=== PATIENT | male | born 1955 | race Caucasian/White ===

== ENCOUNTER → 2023-09-25 07:36 | Outpatient (REF) | payer BC, SELFPAY ==
[2023-09-25 08:39] LABS: % Basophils 0.8 % (0-2); % Eosinophils 9.1 % (0-6); % Immature Granulocytes 0.2 % (0-0.5); % Lymphocytes 26.2 % (20.5-51.1); % Monocytes 10.1 % (1.7-9.3); % Neutrophils 53.6 % (42.2-75.2); Absolute Eosinophils 0.4 10^3/uL (0-0.7); Absolute Lymphocytes 1.2 10^3/uL (1.2-3.4); Absolute Monocytes 0.5 10^3/uL (0.1-0.6); Absolute Neutrophils 2.5 10^3/uL (1.4-6.5); Hematocrit 35.1 % (39.0-52.0); Mean Corp Hgb Conc. 34.2 g/dL (33.0-37.0); Mean Corpuscular Hgb 32.9 pg (27.0-31.0); Mean Corpuscular Volume 96.2 fL (80.0-94.0); Mean Platelet Volume 9.5 fL (7.4-10.4); Nucleated Red Blood Cells % 0 % (-); Platelet Count 218 10^3/uL (130-400); Red Blood Cell Count 3.65 10^6/uL (4.70-6.10); Red Cell Dist. Width 12.4 % (11.5-14.5); White Blood Cell Count 4.7 10^3/uL (4.8-10.8)
[2023-09-25 08:43] LABS: Urine Albumin Negative (Neg - Trace); Urine Bilirubin Negative (Negative); Urine Character Clear (Clear); Urine Color Yellow; Urine Glucose Negative (Negative); Urine Ketone Negative (Negative); Urine Leukocyte Negative (Negative); Urine Nitrite Negative (Negative); Urine Occult Blood Negative (Negative); Urine Urobilinogen Negative (Neg - 1+)
[2023-09-25 09:23] LABS: ALT (SGPT) 31 U/L (0-50); AST (SGOT) 32 U/L (17-59); Albumin 4.1 g/dl (3.5-5.0); Alkaline Phosphatase 59 U/L (38-126); Blood Urea Nitrogen 26 mg/dl (9-20); Calcium 9.6 mg/dl (8.4-10.2); Carbon Dioxide 31 mmol/L (22-30); Chloride 105 mmol/L (98-107); Glucose 117 mg/dl (70-99); HDL Cholesterol 53 mg/dl; LDL Cholesterol, Calculated 74 mg/dl; Potassium 4.3 mmol/L (3.5-5.1); Sodium 138 mmol/L (135-145); Total Bilirubin 0.6 mg/dl (0.2-1.3); Total Cholesterol 155 mg/dl (50-199); Total Protein 6.6 g/dl (6.3-8.2); Triglyceride 140 mg/dl (10-149); Very Low Density Lipoprotein 28 mg/dl (0-30); eGFR > 60.00
[2023-09-25 09:30] LABS: Glycohemoglobin (HgbA1c) 6.1 % (4.0-5.6)
[2023-09-25 09:51] LABS: PSA, Total - Screen 0.38 ng/ml (0.0-4.0); TSH 3.91 uIU/ml (0.47-4.68); TSH Reflex To Free T4 3.91 uIU/ml (0.47-4.68)
[2023-09-25 09:54] LABS: Ferritin 25.9 ng/ml (17.9-464.0)
[2023-09-25 10:11] LABS: Vitamin D, 25-OH*** 43.4 ng/mL (30-80)
[2023-09-25 10:26] LABS: Folate > 20.0 ng/ml (2.76-20); Vitamin B12 473 pg/ml (239-931)
[2023-09-25 10:40] LABS: Protein/creatinine Ratio 0.1; Urine Protein 9 mg/dl
[2023-09-25 10:43] LABS: Microalbumin, Random Urine 0.8 mg/dl (0.6-1.7); Microalbumin/creatinine Ratio 7.1 mg/g
[2023-09-26 08:42] LABS: Intact PTH 38.2 pg/ml (13.6-85.8)
== END ==
LOC: REG 07:36
PROVIDERS: ATTENDING PHYSICIAN Internal Medicine; FAMILY PHYSICIAN Internal Medicine Nephrology; REFERRING PHYSICIAN Internal Medicine Cardiovascular Disease
DX: Z00.00 Encounter for general adult medical examination without abnormal findings (principal); E11.65 Type 2 diabetes mellitus with hyperglycemia; E78.5 Hyperlipidemia, unspecified; I10 Essential (primary) hypertension; E87.6 Hypokalemia; E08.29 Diabetes mellitus due to underlying condition with other diabetic kidney complication; N20.0 Calculus of kidney; N25.89 Other disorders resulting from impaired renal tubular function; R82.992 Hyperoxaluria; E79.0 Hyperuricemia without signs of inflammatory arthritis and tophaceous disease; R82.993 Hyperuricosuria; Q23.1 Congenital insufficiency of aortic valve
CPT/HCPCS: 36415; 80053; 80061; 81003; 82043; 82306; 82570; 82607; 82728; 82746; 83036; 83970; 84156; 84443; 84550; 85025; G0103

== ENCOUNTER → 2023-10-02 06:43 | Outpatient (REF) | payer BC, SELFPAY ==
[2023-10-06 14:12] LABS: 24 Hour Urine Total Volume 2000 mL; CAHPO4, Urine Supersaturation 4.12; CAOX, Urine Supersaturation 2.66; Calcium, Urine 10.5 mg/dL; Calcium, Urine 24 Hour 210 mg/d (100-250); Chloride, Urine 76 mmol/L; Chloride, Urine 24 Hour 152 mmol/d (140-250); Citric Acid, Urine 294 mg/L; Citric Acid, Urine 24 Hour 588 mg/d (320-1240); Creatinine, Urine 24 Hour 1280 mg/d (800-2100); Creatinine, Urine per Volume 64 mg/dL; Magnesium, 24 Hour Urine 144 mg/d (12-199); Magnesium, Urine 7.2 mg/dL; Oxalate, Urine 11 mg/L; Oxalate, Urine 24 Hr 22 mg/d (16-49); Phosphorus, Urine 40 mg/dL; Phosphorus, Urine 24 Hour 800 mg/d (400-1300); Potassium, Urine 66 mmol/L; Potassium, Urine 24 Hour 132 mmol/d (25-125); Sodium, Urine 73 mmol/L; Sodium, Urine 24 Hour 146 mmol/d (51-286); Sulfate, Urine 12 mmol/L; Sulfate, Urine 24 Hour 24 mmol/d (6-30); Uric Acid Calculi -Supersat 0.02; Uric Acid, Urine 23.9 mg/dL; Uric Acid, Urine 24 Hour 478 mg/d (250-750); Urine Collection Length 24 hr; Urine Supersaturation Interp Abnormal; pH, Urine 7.34 (5.00-7.50)
== END ==
LOC: REG 06:43
PROVIDERS: ATTENDING PHYSICIAN Internal Medicine Nephrology; FAMILY PHYSICIAN Internal Medicine
DX: R82.992 Hyperoxaluria (principal); R82.993 Hyperuricosuria
CPT/HCPCS: 81050; 82340; 82436; 82507; 83735; 83945; 83986; 84105; 84133; 84300; 84392; 84560

== ENCOUNTER → 2024-01-04 14:32 | Outpatient (REF) | payer BC, SELFPAY ==
[2024-01-08 14:56] LABS: Lyme Antibody Screen, EIA Negative (Negative)
== END ==
LOC: REG 14:32
PROVIDERS: ATTENDING PHYSICIAN Internal Medicine
DX: T14.8XXA Other injury of unspecified body region, initial encounter (principal); W57.XXXA Bitten or stung by nonvenomous insect and other nonvenomous arthropods, initial encounter
CPT/HCPCS: 36415; 86618

== ENCOUNTER → 2024-07-31 07:02 | Outpatient (REF) | payer BC, SELFPAY ==
[2024-07-31 08:38] LABS: ALT (SGPT) 128 U/L (0-50); AST (SGOT) 101 U/L (17-59); Albumin 4.9 g/dl (3.5-5.0); Alkaline Phosphatase 68 U/L (38-126); Blood Urea Nitrogen 39 mg/dl (9-20); Calcium 10.2 mg/dl (8.4-10.2); Carbon Dioxide 29 mmol/L (22-30); Chloride 98 mmol/L (98-107); Glucose 130 mg/dl (70-99); HDL Cholesterol 42 mg/dl; LDL Cholesterol, Calculated 81 mg/dl; Potassium 4.4 mmol/L (3.5-5.1); Sodium 139 mmol/L (135-145); Total Bilirubin 0.7 mg/dl (0.2-1.3); Total Cholesterol 154 mg/dl (50-199); Total Protein 7.5 g/dl (6.3-8.2); Triglyceride 155 mg/dl (10-149); Very Low Density Lipoprotein 31 mg/dl (0-30); eGFR > 60.00
[2024-07-31 09:13] LABS: % Basophils 0.4 % (0-2); % Eosinophils 1.6 % (0-6); % Immature Granulocytes 0.6 % (0-0.5); % Lymphocytes 20.8 % (20.5-51.1); % Monocytes 9.3 % (1.7-9.3); % Neutrophils 67.3 % (42.2-75.2); Absolute Eosinophils 0.1 10^3/uL (0-0.7); Absolute Lymphocytes 1.5 10^3/uL (1.2-3.4); Absolute Monocytes 0.7 10^3/uL (0.1-0.6); Absolute Neutrophils 4.7 10^3/uL (1.4-6.5); Hematocrit 39.3 % (39.0-52.0); Hemoglobin 13.7 g/dL (13.0-18.0); Mean Corp Hgb Conc. 34.9 g/dL (33.0-37.0); Mean Corpuscular Hgb 32.2 pg (27.0-31.0); Mean Corpuscular Volume 92.3 fL (80.0-94.0); Mean Platelet Volume 9.5 fL (7.4-10.4); Nucleated Red Blood Cells % 0 % (-); Platelet Count 260 10^3/uL (130-400); Red Blood Cell Count 4.26 10^6/uL (4.70-6.10); Red Cell Dist. Width 11.9 % (11.5-14.5)
[2024-07-31 09:25] LABS: Urine Albumin 1+ (Neg - Trace); Urine Bilirubin Negative (Negative); Urine Character Slightly Cloudy (Clear); Urine Color Yellow; Urine Glucose Negative (Negative); Urine Ketone Negative (Negative); Urine Leukocyte Negative (Negative); Urine Nitrite Negative (Negative); Urine Occult Blood Negative (Negative); Urine Urobilinogen Negative (Neg - 1+)
[2024-07-31 09:52] LABS: Urine Mucus Many
[2024-07-31 09:55] LABS: Urine Amorphous Seen
[2024-07-31 09:59] LABS: Urine Bacteria Few (Negative); Urine Red Blood Cell 0-2 /HPF (0-2)
[2024-07-31 10:26] LABS: Vitamin D, 25-OH*** 49.9 ng/mL (30-80)
[2024-07-31 10:36] LABS: Glycohemoglobin (HgbA1c) 6.1 % (4.0-5.6)
[2024-07-31 10:39] LABS: TSH Reflex To Free T4 3.96 uIU/ml (0.47-4.68)
[2024-08-01 19:30] LABS: Hepatitis C Antibody Negative (Negative)
== END ==
LOC: REG 07:02
PROVIDERS: ATTENDING PHYSICIAN Internal Medicine Cardiovascular Disease; FAMILY PHYSICIAN Internal Medicine
DX: E78.5 Hyperlipidemia, unspecified (principal); I10 Essential (primary) hypertension; E11.65 Type 2 diabetes mellitus with hyperglycemia; E78.00 Pure hypercholesterolemia, unspecified; E87.6 Hypokalemia; Z11.59 Encounter for screening for other viral diseases
CPT/HCPCS: 36415; 80053; 80061; 81003; 81015; 82306; 83036; 84443; 85025; 86803

== ENCOUNTER → 2024-09-07 08:07 | Outpatient (REF) | payer BC, SELFPAY ==
[2024-09-07 09:12] LABS: Urine Albumin Negative (Neg - Trace); Urine Bilirubin Negative (Negative); Urine Character Clear (Clear); Urine Color Yellow; Urine Glucose Negative (Negative); Urine Ketone Negative (Negative); Urine Leukocyte Negative (Negative); Urine Nitrite Negative (Negative); Urine Occult Blood Negative (Negative); Urine Urobilinogen Negative (Neg - 1+)
[2024-09-07 09:24] LABS: % Basophils 0.7 % (0-2); % Eosinophils 3.5 % (0-6); % Immature Granulocytes 0.4 % (0-0.5); % Lymphocytes 25.1 % (20.5-51.1); % Monocytes 10.3 % (1.7-9.3); Absolute Eosinophils 0.2 10^3/uL (0-0.7); Absolute Lymphocytes 1.4 10^3/uL (1.2-3.4); Absolute Monocytes 0.6 10^3/uL (0.1-0.6); Absolute Neutrophils 3.3 10^3/uL (1.4-6.5); Hematocrit 38.2 % (39.0-52.0); Mean Corpuscular Hgb 31.9 pg (27.0-31.0); Mean Corpuscular Volume 93.9 fL (80.0-94.0); Mean Platelet Volume 9.4 fL (7.4-10.4); Nucleated Red Blood Cells % 0 % (-); Platelet Count 226 10^3/uL (130-400); Red Blood Cell Count 4.07 10^6/uL (4.70-6.10); Red Cell Dist. Width 11.9 % (11.5-14.5); White Blood Cell Count 5.5 10^3/uL (4.8-10.8)
[2024-09-07 09:36] LABS: ALT (SGPT) 49 U/L (0-50); AST (SGOT) 36 U/L (17-59); Albumin 4.4 g/dl (3.5-5.0); Alkaline Phosphatase 77 U/L (38-126); Blood Urea Nitrogen 21 mg/dl (9-20); Carbon Dioxide 29 mmol/L (22-30); Chloride 104 mmol/L (98-107); Glucose 112 mg/dl (70-99); HDL Cholesterol 49 mg/dl; LDL Cholesterol, Calculated 83 mg/dl; Sodium 142 mmol/L (135-145); Total Bilirubin 0.7 mg/dl (0.2-1.3); Total Cholesterol 158 mg/dl (50-199); Total Protein 7.1 g/dl (6.3-8.2); Triglyceride 133 mg/dl (10-149); Very Low Density Lipoprotein 26 mg/dl (0-30); eGFR > 60.00
[2024-09-07 09:54] LABS: Vitamin D, 25-OH*** 47.2 ng/mL (30-80)
[2024-09-07 10:08] LABS: PSA, Total - Screen 0.38 ng/ml (0.0-4.0); TSH Reflex To Free T4 3.39 uIU/ml (0.47-4.68)
[2024-09-07 11:06] LABS: Microalbumin, Random Urine <0.6 mg/dl (0.6-1.7)
[2024-09-07 11:40] LABS: Glycohemoglobin (HgbA1c) 5.9 % (4.0-5.6)
== END ==
LOC: REG 08:07
PROVIDERS: ATTENDING PHYSICIAN Internal Medicine; REFERRING PHYSICIAN Internal Medicine Cardiovascular Disease
DX: I10 Essential (primary) hypertension (principal); E11.65 Type 2 diabetes mellitus with hyperglycemia; E78.5 Hyperlipidemia, unspecified; Z80.42 Family history of malignant neoplasm of prostate; E87.6 Hypokalemia; E55.9 Vitamin D deficiency, unspecified; Z12.5 Encounter for screening for malignant neoplasm of prostate
CPT/HCPCS: 36415; 80053; 80061; 81003; 82043; 82306; 82570; 83036; 84443; 85025; G0103

== ENCOUNTER → 2024-10-31 14:56 | Outpatient (REF) | payer BC, SELFPAY | LOC: DHSLP 14:56 | PROVIDERS: ATTENDING PHYSICIAN Internal Medicine Critical Care Medicine; FAMILY PHYSICIAN Internal Medicine | DX: G47.33 Obstructive sleep apnea (adult) (pediatric) (principal) | CPT/HCPCS: 95800 ==

== ENCOUNTER → 2024-12-10 07:26 | Outpatient (REF) | payer BC, SELFPAY ==
[2024-12-10 08:58] LABS: Hematocrit 40.6 % (39.0-52.0); Hemoglobin 13.9 g/dL (13.0-18.0); Mean Corp Hgb Conc. 34.2 g/dL (33.0-37.0); Mean Corpuscular Volume 92.1 fL (80.0-94.0); Nucleated Red Blood Cells % 0 % (-); Platelet Count 202 10^3/uL (130-400); Red Cell Dist. Width 12.0 % (11.5-14.5)
[2024-12-10 09:32] LABS: ALT (SGPT) 50 U/L (0-50); AST (SGOT) 35 U/L (17-59); Albumin 5.0 g/dl (3.5-5.0); Alkaline Phosphatase 57 U/L (38-126); Blood Urea Nitrogen 21 mg/dl (9-20); Calcium 10.3 mg/dl (8.4-10.2); Carbon Dioxide 31 mmol/L (22-30); Chloride 103 mmol/L (98-107); Glucose 125 mg/dl (70-99); HDL Cholesterol 56 mg/dl; LDL Cholesterol, Calculated 52 mg/dl; Potassium 4.2 mmol/L (3.5-5.1); Sodium 140 mmol/L (135-145); Total Protein 7.7 g/dl (6.3-8.2); Very Low Density Lipoprotein 22 mg/dl (0-30); eGFR > 60.00
[2024-12-10 09:53] LABS: Glycohemoglobin (HgbA1c) 5.8 % (4.0-5.6)
[2024-12-10 10:01] LABS: PSA, Total - Screen 0.41 ng/ml (0.0-4.0)
[2024-12-10 10:16] LABS: Microalbumin, Random Urine 0.7 mg/dl (0.6-1.7)
[2024-12-10 10:41] LABS: Microalb - Urine Creatinine 79.000 mg/dl
[2024-12-10 13:33] LABS: Vitamin D, 25-OH*** 52.9 ng/mL (30-80)
[2024-12-10 17:36] LABS: Urine Character Slightly Cloudy (Clear)
[2024-12-13 02:27] LABS: Lipoprotein a (Lp a) 124 mg/dL (<=29)
== END ==
LOC: REG 07:26
PROVIDERS: ATTENDING PHYSICIAN Internal Medicine; REFERRING PHYSICIAN Internal Medicine Cardiovascular Disease
DX: G45.9 Transient cerebral ischemic attack, unspecified (principal); I10 Essential (primary) hypertension; E11.65 Type 2 diabetes mellitus with hyperglycemia; E78.5 Hyperlipidemia, unspecified; E87.6 Hypokalemia; R55 Syncope and collapse; E55.9 Vitamin D deficiency, unspecified
CPT/HCPCS: 36415; 80053; 80061; 81003; 82043; 82306; 82570; 83036; 83695; 84439; 84443; 85025; G0103

== ENCOUNTER → 2025-01-04 08:43 | Outpatient (REF) | payer BC, SELFPAY ==
[2025-01-04 09:29] LABS: Hematocrit 42.1 % (39.0-52.0); Hemoglobin 14.2 g/dL (13.0-18.0); Mean Corp Hgb Conc. 33.7 g/dL (33.0-37.0); Mean Corpuscular Volume 93.8 fL (80.0-94.0); Nucleated Red Blood Cells % 0 % (-); Platelet Count 195 10^3/uL (130-400); Red Cell Dist. Width 12.1 % (11.5-14.5)
[2025-01-04 09:30] LABS: Urine Character Clear (Clear)
[2025-01-04 09:44] LABS: Urine Red Blood Cell 0-2 /HPF (0-2); Urine Squamous Cell 0-2 /LPF (Few); Urine White Cell 0-2 /HPF (0-5)
[2025-01-04 09:53] LABS: Microalb - Urine Creatinine 124.100 mg/dl
[2025-01-04 09:58] LABS: Microalbumin, Random Urine 1.7 mg/dl (0.6-1.7)
[2025-01-04 09:59] LABS: ALT (SGPT) 61 U/L (0-50); AST (SGOT) 42 U/L (17-59); Albumin 5.3 g/dl (3.5-5.0); Alkaline Phosphatase 59 U/L (38-126); Blood Urea Nitrogen 23 mg/dl (9-20); Calcium 9.9 mg/dl (8.4-10.2); Carbon Dioxide 26 mmol/L (22-30); Chloride 104 mmol/L (98-107); Glucose 140 mg/dl (70-99); HDL Cholesterol 57 mg/dl; LDL Cholesterol, Calculated 80 mg/dl; Potassium 3.9 mmol/L (3.5-5.1); Sodium 140 mmol/L (135-145); Total Protein 8.1 g/dl (6.3-8.2); Very Low Density Lipoprotein 21 mg/dl (0-30); eGFR > 60.00
[2025-01-04 10:12] LABS: Vitamin D, 25-OH*** 64.6 ng/mL (30-80)
[2025-01-04 10:26] LABS: PSA, Total - Screen 0.39 ng/ml (0.0-4.0)
== END ==
LOC: REG 08:43
PROVIDERS: ATTENDING PHYSICIAN Internal Medicine; REFERRING PHYSICIAN Internal Medicine Cardiovascular Disease
DX: I10 Essential (primary) hypertension (principal); G47.33 Obstructive sleep apnea (adult) (pediatric); E78.5 Hyperlipidemia, unspecified; E11.65 Type 2 diabetes mellitus with hyperglycemia; E87.6 Hypokalemia; Z12.5 Encounter for screening for malignant neoplasm of prostate
CPT/HCPCS: 36415; 80053; 80061; 81003; 81015; 82043; 82306; 82570; 84443; 85025; G0103

== ENCOUNTER → 2025-02-20 13:50 | Outpatient (REF) | payer BC, SELFPAY | LOC: DHSLP 13:50 | PROVIDERS: ATTENDING PHYSICIAN Internal Medicine Critical Care Medicine; FAMILY PHYSICIAN Internal Medicine | DX: G47.33 Obstructive sleep apnea (adult) (pediatric) (principal); G47.61 Periodic limb movement disorder | CPT/HCPCS: 95810 ==

== ENCOUNTER → 2025-05-14 14:07 | Outpatient (REF) | payer BC, SELFPAY | LOC: DHSLP 14:07 | PROVIDERS: ATTENDING PHYSICIAN Internal Medicine Critical Care Medicine; FAMILY PHYSICIAN Internal Medicine | DX: G47.33 Obstructive sleep apnea (adult) (pediatric) (principal); G47.31 Primary central sleep apnea; G47.61 Periodic limb movement disorder; G47.00 Insomnia, unspecified | CPT/HCPCS: 95811 ==